=== PATIENT | female | born 1960 | race Caucasian/White ===

== ENCOUNTER 2017-01-14 03:52 | Emergency (ER) | payer OTHER ==
[~2017-01-14] VITALS: Ht 152.4 cm; Wt 93.0 kg
[2017-01-14 03:53] VITALS: TEMP 36.7; Ht 152.4 cm; Wt 93.0 kg
[2017-01-14 04:07] VITALS: O2SAT 96
[2017-01-14 04:37] LABS: URINE APPEARANCE CLOUDY (CLEAR); URINE BILIRUBIN NEG (NEG); URINE COLOR YELLOW; URINE EPITHELIAL CELL AUTO 20-30 /lpf (0-5); URINE NITRITE POS (NEG); URINE SPECIFIC GRAVITY 1.017 (1.000-1.030); UROBILINOGEN NEG (NEG); ZZUR CULT IF INDIC CLEAN CATCH YES
[2017-01-14 04:39] LABS: BASO % 0.7 %; BASO ABS # 0.04 K/uL (0-0.2); COMPLETE YES; EOS % 2.4 %; HEMATOCRIT 36.6 % (37-47); IG% 0.3 %; LYMPH % 33.3 %; LYMPH ABS # 1.95 K/uL (1.2-3.4); MEAN CELL VOLUME 85.1 fL (80-100); MEAN CORPUSCULAR HGB CONC 35.2 g/dl (32-36); MEAN PLATELET VOLUME 9.4 fL (7.4-10.4); MONO % 10.1 %; NEUT % 53.2 %; PLATELET COUNT 189 K/uL (130-400); WHITE BLOOD COUNT 5.86 K/uL (4.8-10.8)
[2017-01-14 04:55] LABS: MANUAL MICROSCOPIC REQUIRED? NO; REVIEW REQ? NO
[2017-01-14] MEDS ORDERED: CEFTRIAXONE SOD INJ 1 GM ADDVIAL IV STA (05:07)
[2017-01-14 05:09] LABS: BLOOD UREA NITROGEN 10 mg/dl (7-18); BUN/CREATININE RATIO 14.8 (10-20); CALCIUM 8.5 mg/dl (8.5-10.1); CARBON DIOXIDE 26 mmol/L (21-32); CHLORIDE 107 mmol/L (98-107); GLUCOSE 94 mg/dl (70-99); SODIUM 137 mmol/L (136-145)
[2017-01-14 05:16] LABS: PHOSPHORUS 3.6 mg/dl (2.5-4.9)
[2017-01-14] MEDS ORDERED: CEPH500C2 PO (05:24)
--- NOTE | 2017-01-14 05:26 | EMERGENCY ROOM VISIT NOTE ---
History First contact with patient: 04:03 Chief Complaint: SEIZURE Stated Complaint: SEIZURE Nursing Triage Summary: Pt brought in by EMS. Pt woke up with headache. Then pt had seizure where patients body went rigid and she screamed. Pt has history of seizure and is on Keppra. Last seizure was 1 month ago. Only complaint currently is headache. History of Present Illness The patient is a 56 year old female who presents to the Emergency Room with complaints of seizure tonight. Patient states she woke up to take the dog to go the bathroom and then she felt nauseous and felt a seizure coming on. Patient states when she has a seizure she normally screens and becomes rigid. She then was postictal. Her called EMS and brought her here. Patient just moved to the area from [facility]. She sees neurology in [place]. Patient states that she has had seizures since age 18. She is currently on Keppra. She has not missed a dose. Patient denies chest pain, dyspnea, fever, chills, vomiting, diarrhea, urinary symptoms, cold symptoms or recent illness. No other concerns per patient. Review of Systems See HPI for pertinent positives & negatives. A total of 10 systems reviewed and were otherwise negative. Past Medical/Surgical History Seizure disorder, fibromyalgia, back pain, heart disease Social History Smoking Status: Never Smoker Smokeless Tobacco Use: No Alcohol Use: none Drug Use: none Marital Status: Housing Status: lives with family Physical Exam Vital Signs Date Time Temp Pulse Resp B/P (MAP) Pulse Ox O2 Delivery O2 Flow Rate FiO2 01/14/17 05:13 70 16 126/79 98 Room Air 01/14/17 04:07 96 Room Air 01/14/17 04:07 96 01/14/17 04:02 96 Room Air 01/14/17 03:53 36.7 80 20 130/80 95 Room Air Physical Exam VITALS: Vitals are noted on the nurse's note and reviewed by myself. Vital signs stable. GENERAL: Pleasant female answering questions appropriately, in no acute distress , nondiaphoretic, well-developed well-nourished. SKIN: The skin was without rashes, erythema, edema, or bruising. There is no tenting of the skin. Capillary reflex less than 2 seconds. HEAD: Normocephalic atraumatic. EARS: External auditory canals clear, tympanic membranes pearly cabrera without erythema or effusion bilaterally. EYES: Pupils equal round and reactive to light and accommodation. Conjunctivae without injection, sclerae without icterus. Extraocular movements intact. NOSE: Patent, turbinates without inflammation or discharge. No sinus tenderness. MOUTH: Mucous membranes moist. Pharynx without erythema or exudate. Uvula midline. Airway patent. Tongue does not deviate. NECK: Supple without nuchal rigidity. No lymphadenopathy. No thyromegaly. Cervical spine is nontender. No JVD. HEART: Regular rate and rhythm LUNGS: Clear to auscultation bilaterally without wheezes, rales or rhonchi. No dullness to percussion. No retractions or accessory muscle use. ABDOMEN: Positive bowel sounds x 4. Normal tympanic percussion. Soft, nontender, without masses or organomegaly. Ornelas sign negative. No guarding or rebound tenderness. MUSCULOSKELETAL: No muscle atrophy, erythema, or edema noted. NEURO: Patient was alert and oriented to person place and time. Normal sensation to light and sharp touch. No focal neurological deficits. Cranial nerves II-12 grossly intact. No pronator drift. Cerebellar exam intact. Medical Decision & Procedures Laboratory Results 01/14/17 04:20 Red Blood Count 4.30, Mean Corpuscular Volume 85.1, Mean Corpuscular Hemoglobin 30.0, Mean Corpuscular Hemoglobin Concent 35.2, Mean Platelet Volume 9.4, Neutrophils (%) (Auto) 53.2, Lymphocytes (%) (Auto) 33.3, Monocytes (%) (Auto) 10.1, Eosinophils (%) (Auto) 2.4, Basophils (%) (Auto) 0.7, Neutrophils # (Auto ) 3.12, Lymphocytes # (Auto) 1.95, Monocytes # (Auto) 0.59, Eosinophils # (Auto ) 0.14, Basophils # (Auto) 0.04 01/14/17 04:20 Test 01/14/17 04:10 01/14/17 04:20 Urine Color YELLOW Urine Appearance CLOUDY (CLEAR) Urine pH 6.0 (4.5-7.5) Urine Specific [place] 1.017 (1.000-1.030) Urine Protein NEG (NEG) Urine Glucose (UA) NEG (NEG) Urine Ketones NEG (NEG) Urine Occult Blood TRACE (NEG) Urine Nitrite POS (NEG) Urine Bilirubin NEG (NEG) Urine Urobilinogen NEG (NEG) Urine Leukocyte Esterase LARGE (NEG) Urine WBC (Auto) >30 /hpf (0-5) Urine RBC (Auto) 0-4 /hpf (0-4) Urine Hyaline Casts (Auto) 1-5 /lpf (0-5) Urine Epithelial Cells (Auto) 20-30 /lpf (0-5) Urine Bacteria (Auto) 4+ (NEG) White Blood Count 5.86 K/uL (4.8-10.8) Red Blood Count 4.30 M/uL (4.2-5.4) Hemoglobin 12.9 g/dL (12.0-16.0) Hematocrit 36.6 % (37-47) Mean Corpuscular Volume 85.1 fL (80-100) Mean Corpuscular Hemoglobin 30.0 pg (25-34) Mean Corpuscular Hemoglobin Concent 35.2 g/dl (32-36) Platelet Count 189 K/uL (130-400) Mean Platelet Volume 9.4 fL (7.4-10.4) Neutrophils (%) (Auto) 53.2 % Lymphocytes (%) (Auto) 33.3 % Monocytes (%) (Auto) 10.1 % Eosinophils (%) (Auto) 2.4 % Basophils (%) (Auto) 0.7 % Neutrophils # (Auto) 3.12 K/uL (1.4-6.5) Lymphocytes # (Auto) 1.95 K/uL (1.2-3.4) Monocytes # (Auto) 0.59 K/uL (0.11-0.59) Eosinophils # (Auto) 0.14 K/uL (0-0.5) Basophils # (Auto) 0.04 K/uL (0-0.2) RDW Standard Deviation 41.9 fL (36.4-46.3) RDW Coefficient of Variation 13.6 % (11.5-14.5) Immature Granulocyte % (Auto) 0.3 % Immature Granulocyte # (Auto) 0.02 K/uL (0.00-0.02) Anion Gap 4.0 mmol/L (3-11) Est Creatinine Clear Calc Drug Dose 93.6 ml/min Estimated GFR () 113.8 Estimated GFR (Non- 98.2 BUN/Creatinine Ratio 14.8 (10-20) Calcium Level 8.5 mg/dl (8.5-10.1) Phosphorus Level 3.6 mg/dl (2.5-4.9) Magnesium Level mg/dl (1.8-2.4) Thyroid Stimulating Hormone (TSH) 5.290 uIu/ml (0.300-4.500) Medications Administered Medications (Trade) Dose Ordered Sig/Sugey Route Start Time Stop Time Status Last Admin Dose Admin Ceftriaxone Sodium (Rocephin Inj) 1 gm NOW STAT IV 01/14/17 05:07 01/14/17 05:08 DC 01/14/17 05:10 1 GM ED Course Prior records/ancillary studies reviewed. Patient placed in seizure precautions immediately upon arrival. Nursing notes reviewed. Additional history obtained from EMS The patient's history was concerning for a possible seizure. Differential diagnosis: Etiologies such as infection, hypoglycemia, electrolyte abnormalities, cardiac sources, intracerebral event, trauma, toxicologic, neurologic, as well as others were entertained. Physical examination: As above. No signs of trauma. ER treatment provided: By mouth fluids On reassessment the patient felt better. Diagnostics interpretation by me: ECG: Normal sinus,no acute ST-T wave changes, incomplete right bundle-branch block, rate of 77. Impression incomplete right bundle-branch block interpreted The labs revealed urine concerning for infection and sent for culture Keppra level pending The patient has a history of seizures and experienced another episode and patient also has a UTI. She is started on Keflex. She's had this before in the past that difficulties. She does states she has a sulfa allergy. No concerning physical findings or historical points were noted. Advanced diagnostics were deemed unnecessary. Patient was neurovascularly and neurologically intact. She is well-appearing. She is advised to follow-up with her neurologist. She is advised to return to the ER mainly for seizures, chest pain, fevers, worsening signs or symptoms or as needed. By the evaluation outlined above emergent etiologies such as hypoglycemia, electrolyte abnormalities, cardiac sources, intracerebral event, toxicologic, neurologic,as well as others were deemed relatively unlikely. The patient was counseled not to drive until cleared in follow-up and seizure precautions given. I gave my usual and customary discussion regarding these issues. Patient states she does not currently drive. The pt informed about the findings as listed above. All questions were answered and pleased with the treatment. Return instructions were outlined and the patient was discharged in stable condition. Outpatient prescription management: Keflex Referral: The patient was referred back to their neurologist for follow-up in 2 to 3 days for a recheck of the current condition. Case reviewed with my attending Medical Decision As above Medication Reconcilliation Current Medication List: was personally reviewed by me Blood Pressure Screening Patient's blood pressure: Normal blood pressure Impression Primary Impression: Seizure Additional Impression: UTI (urinary tract infection) Departure Information Dispostion Home / Self-Care Condition GOOD Referrals [facility] (PCP) Patient Instructions My [facility] Additional Instructions DO NOT drive, drink alcohol, operate machinery, or perform dangerous activities today. You were given medications in the ER that can affect your ability to safely function or operate a vehicle. Cephalexin(Keflex) 500mg: Take one pill to times daily for 7 days for your infection. All antibiotics can cause diarrhea. If this occurs and you feel worse or it does not resolve in 1-2 days follow up with your doctor or return to the Emergency Department as this could be signs of serious underlying problems. Any medication can cause an allergic reaction, stop the pills immediately and return to the ER for rash, hives, breathing difficulties, or swelling. Ibuprofen(Motrin, Advil) may be used for fever or pain. Use 600mg every six hours as needed. Take with food. Avoid using more than 2400mg in a 24 hour period. Do not use 2400mg per day for more than three consecutive days without physician direction. Prolonged inappropriate use can lead to stomach upset or ulcers. (AND/OR) Acetaminophen(Tylenol) may be used for fever or pain. Use 1000mg every six hours as needed. Avoid using more than 3000mg in a 24 hour period. Rest and drink plenty of fluids as tolerated. Continue current medications. Return to the ER immediately for worsening or persistent seizures, abdominal pain, vomiting, fevers, chest pains, difficulty breathing, worsening of your condition, or as needed. Follow up with your primary physician and neurologist in 2-3 days for a recheck of your current condition. Problem Qualifiers
[2017-01-14] MEDS ORDERED: CEPHALEXIN 500MG HOME PACK 1 EA BTL PO ONE (05:30)
[2017-01-14] MEDS ORDERED: CYM/30 PO (05:40)
[2017-01-14] MEDS ORDERED: LEVE750T PO (05:42)
[2017-01-14 05:43] VITALS: BP 140/99; PULSE 75; O2SAT 97
[2017-01-14] MEDS ORDERED: PREG1CAP28 PO (05:43)
[2017-01-14] MEDS ORDERED: MONT1TAB3 PO (05:44)
[2017-01-14] MEDS ORDERED: DULO-24 PO (05:45)
--- NOTE | 2017-01-16 12:39 | Pharmacy Progress Note ---
ED Pharmacist Culture FollowUp Date of Service: Jan 16, 2017. Patient was seen in the ER on 01/14 for seizure. At that time she had no urinary symptoms however she was prescribed Keflex 500mg BID x 7 days based upon the UA. Urine cx is growing two species of e coli, one that is sensitive to Keflex, the other organism is intermediate sensitivity to Keflex. I spoke with the patient over the phone to determine if she had a fever or urinary symptoms. She denied having urinary symptoms or fever and was taking the ABX without issue. The culture may have represented contamination or asymptomatic bacteruria, neither of which would require antibiotic therapy as she is non and no planned urinary intervention No further action required..
== END 2017-01-14 05:45 | disposition home or self-care (01) ==
LOC: EDBD 03:52 → C.EDB 03:57
DX: G40.909 Epilepsy, unspecified, not intractable, without status epilepticus (principal); N39.0 Urinary tract infection, site not specified; M79.7 Fibromyalgia